=== PATIENT | female | born 1950 | race Caucasian/White ===

== ENCOUNTER → 2016-09-30 | Outpatient (CLI) | payer MEDICARE, BC ==
--- NOTE | 2016-09-30 10:33 | WWHP ---
DATE OF SERVICE: 09/30/2016 CHIEF COMPLAINT: The patient is here for her routine gynecologic exam and mammogram. HPI: This is a 66-year-old G4, P4 with an LMP of 2004. She is status post CHALINO with BSO for benign reasons. The patient is without gynecologic complaints. PAST MEDICAL HISTORY: Chronic hypertension and osteopenia. MEDICATIONS: 1. Lisinopril 5 mg daily. 2. Vitamin D 1000 units daily, but she states she does not consistently take this every day. ALLERGIES: No known drug allergies. 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 SOCIAL HISTORY: She denies tobacco and drug use and has 0 to 3 alcoholic drinks per week. She has been since 1971. REVIEW OF SYSTEMS: She has gained about 6 pounds over the last year. She denies respiratory, cardiac, or GI problems. She denies maltreatment or falling. : She denies any significant problems with urinary leakage. PHYSICAL EXAM: Blood pressure 162/88. Height 5 feet 5 inches. Weight 141 pounds. Temperature 99.0, pulse 87. This is a well-developed, well-nourished white female who is alert and oriented x3 in no acute distress. HEENT is within normal limits. NECK: Supple without mass or thyromegaly. CHEST AND LUNGS: Clear to auscultation. HEART: Regular rate and rhythm. Breasts are without mass or discharge. Axillary exam is negative for adenopathy. BACK: Negative for CVA tenderness. ABDOMEN: Soft, nontender, without palpable masses. PELVIC EXAM: External genitalia reveals moderate atrophy without lesions. Vagina reveals mild to moderate atrophy without lesions. There is no evidence of prolapse. Bimanual exam is negative for mass or tenderness. Rectovaginal exam is negative for mass or tenderness and is negative for occult blood. EXTREMITIES: Nontender. IMPRESSION: 1. A 66-year-old menopausal female who is status post CHALINO/BSO for benign reasons with normal gynecologic exam. 2. History of osteopenia. PLAN: 1. Pap smears have been discontinued. 2. Self breast examination was discussed. 3. Mammogram will be done today. 4. Osteoporosis prevention was discussed. I stressed the importance of getting adequate amounts of calcium, vitamin D and exercise on a regular daily basis. I recommended repeating bone density testing and a slip was given to patient for this. 5. She will return in one year.
--- NOTE | 2016-10-01 07:52 | MM ---
Reason for exam: screening (asymptomatic). Last mammogram was performed 1 year and 2 months ago. History: Patient is postmenopausal. Took estrogen for 6 months beginning at age 54. Physical Findings: A clinical breast exam by your physician is recommended on an annual basis and results should be correlated with mammographic findings. MG 3D Screening Mammo W/Cad Bilateral CC and MLO view(s) were taken. Prior study comparison: August 01, 2015, bilateral MG 3d screening mammo w/cad. July 05, 2014, bilateral MG screening mammo w CAD. The breast tissue is heterogeneously dense. This may lower the sensitivity of mammography. There is no discrete abnormality. No significant changes when compared with prior studies. ASSESSMENT: Negative, BI-RAD 1 RECOMMENDATION: Routine screening mammogram of both breasts in 1 year.
== END | disposition home or self-care (01) ==
LOC: WWCWWP 07:48
PROVIDERS: ATTEND Obstetrics & Gynecology
DX: Z12.31 Encounter for screening mammogram for malignant neoplasm of breast (principal)
CPT/HCPCS: 77063; G0202

== ENCOUNTER → 2018-11-10 | Outpatient (CLI) | payer MEDICARE ==
[2018-11-10 08:11] VITALS: RESP 16; BMI 25.0
[2018-11-10 08:27] VITALS: BP 148/74; PULSE 74; TEMP 98
--- NOTE | 2018-11-10 08:54 | P.HPOB ---
History of Present Illness H&P Date: 11/10/18 Chief Complaint: The patient is here for her routine gynecologic exam and ma mmogram. This is a 68-year-old with an LMP of 2003. She is status post CHALINO and BSO for benign reasons. The patient is requesting a prescription for estrogen vaginal cream which she has used a few years ago for vaginal dryness. She states it was helpful and she would like to use this again for vaginal dryness. Review of Systems She's getting about 9 pounds over the last 2 years. She denies respiratory, cardiac and G.I. problems. She denies maltreatment or problems with falling. : she denies any significant problems with urinary leakage. Past Medical History Past Medical History: Hypertension Additional Past Medical History / Comment(s): Osteopenia. 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 History of Any Multi-Drug Resistant Organisms: None Reported Past Surgical History: Hernia Repair, Hysterectomy, Joint Replacement, Orthopedi c Surgery Additional Past Surgical History / Comment(s): CHALINO BSO in 2003. Shoulder surgery. Inguinal hernia repair in 2012. Colonoscopy in 2011. Past Psychological History: No Psychological Hx Reported Smoking Status: Never smoker Past Alcohol Use History: Occasional (0-2 per week) Past Drug Use History: None Reported Additional History: She has been since 1971. - Past Family History Sister(s) Family Medical History: Cancer Additional Family Medical History / Comment(s): Ovarian cancer. Father Family Medical History: Cancer Additional Family Medical History / Comment(s): Lung cancer. Brother(s) Family Medical History: Diabetes Mellitus Medications and Allergies Home Medications Medication Instructions Recorded Confirmed Type Diclofenac Sodium [Voltaren] 1 mg PO DAILY 11/10/18 11/10/18 History Lisinopril [Zestril] 1 mg PO DAILY 11/10/18 11/10/18 History Allergies Allergy/AdvReac Type Severity Reaction Status Date / Time No Known Allergies Allergy Unverified 11/10/18 08:45 Exam Vital Signs Temp Pulse Resp BP 11/10/18 08:23 98.0 F 74 16 148/74 11/10/18 07:55 98 F 76 16 148/76 Height 5'5", weight 150 pounds, BMI 25. This is a well-developed well-nourished white female who is alert and oriented times 3 in no acute distress. HEENT: Within normal limits. NECK: Supple without mass or thyromegaly. CHEST AND LUNGS: Clear to auscultation. HEART: Regular rate and rhythm. BREASTS: Are without mass or discharge. AXILLARY EXAM: Negative for adenopathy. BACK: Negative for CVA tenderness. ABDOMEN: Soft, nontender, without palpable masses. PELVIC EXAM: External genitalia appears normal with moderate atrophy. Vagina appears normal with moderate atrophy. There is no evidence of prolapse. Bimanual examination is negative for mass or tenderness. RECTAL EXAM: Rectovaginal exam is negative for mass or tenderness and is negative for occult blood. EXTREMITIES: Nontender. IMPRESSION: 1. 68-year-old menopausal female status post CHALINO BSO with moderate genital atrophy. 2. 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 The patient is requesting to restart estrogen vaginal cream. 3. History of osteopenia. PLAN: 1. Pap smears have been discontinued. 2. Self breast awareness was discussed with the patient. 3. Screening mammogram will be done today. 4. A prescription for Premarin vaginal cream 1 g intravaginally twice-weekly will be sent to [facility] pharmacy in [place]. 5. Osteoporosis prevention was discussed. I have stressed the importance of adequate calcium, vitamin D and regular exercise. Recommended amounts of calcium and vitamin D were also discussed. I have recommended bone density testing and the order slip was given to the patient for this. 6. She does not get flu shots in the fall. I have recommended that she reconsider this. 7. I have recommended that she return in one to 2 years for her well woman exam.
--- NOTE | 2018-11-11 10:47 | MM ---
Reason for exam: screening (asymptomatic). Last mammogram was performed 2 years and 1 month ago. History: Patient is postmenopausal. Took estrogen for 6 months beginning at age 54. Physical Findings: A clinical breast exam by your physician is recommended on an annual basis and results should be correlated with mammographic findings. MG 3D Screening Mammo W/Cad Bilateral CC and MLO view(s) were taken. Prior study comparison: September 30, 2016, bilateral MG 3d screening mammo w/cad. August 01, 2015, bilateral MG 3d screening mammo w/cad. The breast tissue is heterogeneously dense. This may lower the sensitivity of mammography. No significant changes when compared with prior studies. ASSESSMENT: Negative, BI-RAD 1 RECOMMENDATION: Routine screening mammogram of both breasts in 1 year.
== END | disposition home or self-care (01) ==
LOC: WWCWWP 07:44
PROVIDERS: ATTEND Obstetrics & Gynecology
DX: Z12.31 Encounter for screening mammogram for malignant neoplasm of breast (principal)
CPT/HCPCS: 77063; 77067

== ENCOUNTER → 2020-10-11 | Outpatient (CLI) | payer MEDICARE ==
--- NOTE | 2020-10-12 15:01 | MM ---
Reason for exam: screening (asymptomatic). Last mammogram was performed 1 year and 11 months ago. History: Patient is postmenopausal. Took estrogen for 6 months beginning at age 54. Physical Findings: A clinical breast exam by your physician is recommended on an annual basis and results should be correlated with mammographic findings. MG 3D Screening Mammo W/Cad Bilateral CC and MLO view(s) were taken. Prior study comparison: November 10, 2018, bilateral MG 3d screening mammo w/cad. September 30, 2016, bilateral MG 3d screening mammo w/cad. The breast tissue is heterogeneously dense. This may lower the sensitivity of mammography. Benign calcifications. No significant changes when compared with prior studies. ASSESSMENT: Benign, BI-RAD 2 RECOMMENDATION: Routine screening mammogram of both breasts in 1 year.
== END | disposition home or self-care (01) ==
LOC: RADMAMWWP 08:33
PROVIDERS: ATTEND Family Medicine
DX: Z12.31 Encounter for screening mammogram for malignant neoplasm of breast (principal); Z78.0 Asymptomatic menopausal state
CPT/HCPCS: 77063; 77067